=== PATIENT | female | born 1960 | race Caucasian/White ===

== ENCOUNTER → 2018-02-16 | Outpatient (CLI) | payer OTHER ==
[~2018-02-16] VITALS: Ht 170.2 cm; Wt 71.2 kg
[~2018-02-16] MED LIST: ACETAMINOPHEN325 M1 PO; ALAVERT10 MG PO; ALBUTEROL2.5 MG/31 INH; BACLOFEN20 MG PO; BROVANA15 MCG/2 M INH; BUPROPION XL150 MG PO; CLONAZEPAM 0.50.5 M1 PO; CLONAZEPAM 1 MG1 M1 PO; CRESTOR10 MG PO; CRESTOR20 MG PO; CYCLOBENZAPRINE10 MG PO; ENABLEX15 MG PO; ESTRACE1 MG PO; FLUTICASONE PRO16 GM NASAL; GYNODIOL0.5 MG PO; HUMIRA40 MG/0.8 SUBQ; HYDROCODON-ACE1 EAC7 PO; HYDROCODONE-AP1 EAC6 PO; IMITREX100 MG PO; LEVOCETIRIZINE D5 MG PO; LEVOTHROID25 MCG PO; LIDODERM 5%1 PATCH TOP; LISINOPRIL10 MG PO; LYRICA 50 MG50 MG PO; MEDROLDOSEPACK PO; METHOTREXATE 22.5 MG PO; MOBIC15 MG PO; MYRBETRIQ50 MG PO; NEURONTIN 300M300 M2 PO; NORCO 5-325 TA1 EACH PO; OMEPRAZOLE20 M2 PO; PERCOCET 5-3251 EACH PO; PREDNISONE 10 M10 M1 PO; SUMATRIPTAN10 GM PO; TRIAMCINOLONE A80 G2 TOP; TYLENOL EXTRA500 MG PO; VENTOLIN HFA INH8 GM INH; VESICARE10 M1 PO; VITAMIN D 5050000 I1 PO; VITAMIN D1000 UNI1 PO; WELLBUTRIN SR150 MG PO; ZPAK PO
--- NOTE | ~2018-02-16 | HPC ---
[facility] [address] [place] [address] PAIN MANAGEMENT CONSULTATION Name: LORAINE WESTBROOK Room #: REG CHARISSA ..#: [id number] Admission: 02/16/18 Attend Phys: Gilson Diaz DO Discharge: Date of : 64 Report #: [id number] THIS REPORT FOR: //name// CC: Odette William MD DATE OF SERVICE: 02/16/2018 CHIEF COMPLAINT: Low back pain, bilateral lower extremity pain with paresthesias. HISTORY OF PRESENT ILLNESS: As you know, the patient is a 58-year-old female who has had a longstanding history of back pain issues and numbness and tingling, which radiates down the legs periodically. The patient reports pain began to intensify 08/05/2015, progressively worsened. She has been followed by Dr. William for rheumatologic issues and due to lack of improvement with conservative treatment, the patient was referred to our clinic after undergoing MRI, which shows minor changes in her lumbar region. She was advised to trial an epidural injection to determine if this would be able to improve her ongoing symptoms. She denies injury or trauma that may have led to symptom recurrence. The patient indicates today pain is continuous, steady, constant with intermittent exacerbations. She describes the pain as burning, cramping, aching, crushing, throbbing, sharp and tender, places current pain score 8/10, daily average at 8/10, worst pain has been is 10/10. The patient states that standing, walking, sitting exacerbate symptoms, nothing appears to improve pain. The patient has been referred to our clinic with minor changes in the lumbar region to discuss the possibility of undergoing epidural injection and determine if this would be able to improve the patient's overall pain. PAST MEDICAL HISTORY: 1. Hypertension. 2. Thyroid disease. 3. Rheumatoid arthritis. 4. Osteoarthritis. 5. Seasonal allergies. 6. Gastroesophageal reflux disease. PAST SURGICAL HISTORY: Back surgery. SOCIAL HISTORY: The patient denies tobacco, alcohol, IV or illicit drug use. She is on disability. She has been on disability for years. She has not worked. She is not receiving workmen's compensation nor is she trying to obtain disability benefits. She is not in litigation in regards to her pain. She is unaccompanied today. [address] [address] PAIN MANAGEMENT CONSULTATION Name: LORAINE WESTBROOK Room #: REG CHARISSA Dorantes#: [id number] Admission: 02/16/18 Attend Phys: Gilson Diaz DO Discharge: Date of : 64 Report #: [id number] REVIEW OF SYSTEMS: Positive for fatigue, weakness, frequent and recurrent headaches, wearing corrective eyewear, hearing loss or tinnitus, chronic sinus problems with rhinitis, shortness of breath with doing any activities, frequent urination, nocturia, incontinence and dribbling to urine, numbness and tingling sensations, thyroid disease, rheumatoid arthritis. All other review of systems is negative per 12-point review of systems other than those listed in history of present illness. Pain impact score 45/70, moderate interference of daily activities secondary to pain. ALLERGIES: No known drug allergies. CURRENT MEDICATIONS: Baclofen 20 mg twice a day, fluticasone twice a day, Humira 40 mg once a week, lisinopril 20 mg per day, levothyroxine 25 mcg per day, meloxicam 15 mg once a day, methotrexate 2.5 mg 4 tabs once a week, Myrbetriq 50 mg per day, omeprazole 20 mg per day, lovastatin 20 mg per day, Ventolin p.r.n., levocetirizine 5 mg once a day. IMAGING: MRI lumbar spine obtained 12/02/2017 shows L1-L2, L2-L3, L3-L4 unremarkable. L4-L5, mild circumferential disk bulge without disk protrusion, moderate facet hypertrophy and posterior ligamentum flavum hypertrophy combination causes no central canal stenosis. Neural foramen is patent. Thecal sac measures 1.2 cm, normal range. L5-S1 disk narrowed with circumferential osteophyte complex, no resultant central canal stenosis, advanced hypertrophy of the facets, posterior ligamentum flavum hypertrophy combination results in mild thinning of the thecal sac down to 1.0, mild inferior neuroforaminal encroachment. PQRS: The patient has osteoarthritic changes of the weightbearing joints and lumbar region. She does have a history of rheumatoid arthritis affecting mainly the hands. Pain intensity 8/10. The patient is a fall risk, had a fall in last 3 months. She is not on blood thinners. She is treated for hypertension. She is not on chronic opioids. She apparently has a low risk based on our risk assessment tool for opioid addiction. Functional pain impact score 45/70, moderate. PHYSICAL EXAMINATION: VITAL SIGNS: Blood pressure 155/83, pulse 84, respiratory rate 16 and unlabored. The patient is 98% on room air. Height 5 feet 7 inches tall, weight 157 pounds, BMI calculated 24.6. GENERAL: Well-developed, well-nourished, well-hydrated 58-year-old female, appears older than her stated age. She is placing current pain score at 7/10. HEENT: Normocephalic, atraumatic. Pupils equal, round, reactive to light. Extraocular muscles are intact. The patient does utilize hearing aids. [address] [place] [address] PAIN MANAGEMENT CONSULTATION Name: LORAINE WESTBROOK Room #: REG CHARISSA [facility].#: [id number] Admission: 02/16/18 Attend Phys: Gilson Diaz DO Discharge: Date of : 64 Report #: [id number] NEUROLOGIC: Speech is fluent for patient. She is deemed a good historian. LUNGS: Clear. No wheeze, rhonchi or rales. CARDIOVASCULAR: Regular. No appreciable gallop, no rub. ABDOMEN: Soft, nontender, nondistended, normal active bowel sounds. EXTREMITIES: Show no clubbing, no cyanosis, no edema. MUSCULOSKELETAL: Lower extremity strength is equal and symmetrical 5/5. Deconditioning noted bilaterally. There is some palpatory tenderness over the paraspinal musculature of lower lumbar spine, no spinous process tenderness. Seated straight leg raising negative. Supine straight leg raising negative. Brie's test is negative. Modified Gaenslen's is positive for some axial low back pain. Ankle clonus negative. Babinski is negative. ASSESSMENT: 1. Chronic low back pain. 2. Facet arthropathy of the lumbar spine. 3. Lumbar degeneration. 4. Mild neuroforaminal stenosis of lumbar spine. 5. Chronic intractable pain. PLAN: 1. The patient has been referred to our service by her primary care physician to be evaluated for suspected lumbar radiculopathy. I am unable to elicit any lumbar radicular component to the patient's symptoms today. She does have a history of symptoms radiating down her right leg as recent as about 3 weeks ago, though this is not apparent in today's evaluation. The findings on the MRI show mild changes other than the arthritic changes to the L5-S1, which is typical for a 58-year-old female. I am not highly impressed with the findings in this imaging study. The patient was referred to our clinic to trial an epidural injection to see if this would be able to improve overall pain. As indicated above, I am unable to elicit any specific radicular symptoms in today's evaluation, though her history would indicate a potential radicular component. We have discussed with the patient the risks and benefits of the requested epidural injection. These risks include but are not necessarily limited to bleeding, bruising, infection, worsening pain, no relief of pain, also risk of temporary or permanent muscle weakness, temporary or permanent nerve damage, possible paralysis and . The patient states she understood and wished to proceed. 2. No medication changes were suggested at today's visit. The patient will continue current medical therapy as previously prescribed. 3. We will see the patient back in followup visit on an as needed basis for a possible next in the series of epidural injections assuming she receives excellent improvement in overall pain. 4. We wish to thank Dr. William for the referral of this patient to our clinic. We will keep you apprised of her response to treatment with the requested epidural [address] [address] PAIN MANAGEMENT CONSULTATION Name: LORAINE WESTBROOK Room #: REG CHARISSA Dorantes#: [id number] Admission: 02/16/18 Attend Phys: Gilson Diaz DO Discharge: Date of : 64 Report #: [id number] injection. Again, we wish to thank you for the opportunity to see the patient in consultation. <ELECTRONICALLY SIGNED> By: Gilson Diaz DO 02/23/18 0727 0821 1342 Gilson Diaz DO /nt
--- NOTE | ~2018-02-16 | P ---
[facility] [place] [address] PROCEDURE REPORT Name: LORAINE WESTBROOK Room #: REG [facility]#: [id number] Admission: 02/16/18 Attend Phys: Gilson Diaz DO Discharge: Date of : 64 Report #: [id number] THIS REPORT FOR: //name// CC: Odette William MD DATE OF SERVICE: 02/16/2018 PROCEDURE: L5-S1 interlaminar epidural steroid injection under fluoroscopic guidance. This is the first procedure of the first series that the patient is undergoing. After obtaining written consent, the patient was taken back to the fluoroscopy suite, placed in a prone position with pillow under the abdomen to decrease lumbar lordosis. The skin overlying the lumbosacral area was then prepped and draped in aseptic fashion. The L5-S1 vertebral interspace was then identified by AP fluoroscopy. The skin and subcutaneous tissue overlying the target site of injection was anesthetized with 3 mL 1% lidocaine. A 20-gauge 3-1/2-inch Tuohy needle was then advanced under fluoroscopic guidance towards the epidural space using a paramedian approach. The epidural space was identified using loss of resistance to air technique. After negative aspiration for heme or cerebrospinal fluid, a total of 1 mL of Omnipaque was injected. A lumbar epidurogram was confirmed using both AP and lateral fluoroscopy. After negative aspiration for heme or cerebrospinal fluid, 5 mL of a solution containing 2 mL 40 mg per mL, 80 mg total triamcinolone, 3 mL of lidocaine 1% was injected in increments. Contrast spread was noted posterior epidural space. The needle was then retracted approximately half way and needle tract flushed with 1 mL of 1% lidocaine. Needle was then removed. There were no apparent sensory or motor deficits in the lower extremity following the procedure. A sterile bandage was placed over the injection site. The heart rate, pulse, oximetry and blood pressure were continuously monitored after the procedure. There were no apparent complications. The patient tolerated the procedure well and was carefully escorted to the recovery room in stable condition. There were no apparent complications. After meeting discharge criteria, the patient was then discharged home. <ELECTRONICALLY SIGNED> By: Gilson Diaz DO 02/23/18 0727 0821 1346 Gilson Diaz DO /nt
[2018-02-16 09:56] VITALS: BP 155/83
== END | disposition home or self-care (01) ==
LOC: PAIN 06:53
DX: M12.88 Other specific arthropathies, not elsewhere classified, other specified site (principal); M51.36 Other intervertebral disc degeneration, lumbar region; M99.73 Connective tissue and disc stenosis of intervertebral foramina of lumbar region; G89.29 Other chronic pain; I10 Essential (primary) hypertension; E07.9 Disorder of thyroid, unspecified; M06.9 Rheumatoid arthritis, unspecified; J30.2 Other seasonal allergic rhinitis; K21.9 Gastro-esophageal reflux disease without esophagitis; H91.90 Unspecified hearing loss, unspecified ear; M25.78 Osteophyte, vertebrae; Z98.890 Other specified postprocedural states; Z79.899 Other long term (current) drug therapy; Z87.891 Personal history of nicotine dependence